=== PATIENT | male | born 1980 | race Caucasian/White ===

== ENCOUNTER 2016-06-20 08:33 | Emergency (ER) | payer OTHER ==
[~2016-06-20] VITALS: Ht 172.7 cm; Wt 100.0 kg
[~2016-06-20 08:33] MED LIST: CLINDAMYCIN HC150 MG PO; CLINDAMYCIN HC300 MG PO; CYMBALTA; DILAUDID 2MG TAB2 MG PO; FLOMAX 0.40.4 MG/CAP PO; LORTAB 5/500 501 TAB PO; MACROBID 1100 MG/CAP PO; NO HOME MEDICATIONS; NORCO 325 MG-51 TAB PO; PENICILLIN V500 MG PO; PERCOCET 325 MG1 TA2 PO; PERCOCET 325 MG1 TAB PO; PERCOCET 5/321 UDTAB PO; PREDNISONE20 MG PO; PYRIDIUM 100MG100 MG PO; SENOKOT8.6 MG PO; TUSS PO; ULTRAM 50MG TAB50 MG PO; ZITHROMAX Z PA250 MG PO; ZOFRAN 4MG T4 MG/TAB PO; ZOFRAN8 MG PO
[2016-06-20 08:35] VITALS: BP 110/56; PULSE 85; TEMP 98
[2016-06-20] MEDS ORDERED: CLEOCIN HC150 MG/CAP PO (09:02)
[2016-06-20] MEDS ORDERED: NORCO 325 MG-51 TAB PO (09:02)
== END 2016-06-20 09:14 | disposition home or self-care (01) ==
LOC: COL.ER 08:33
DX: G89.18 Other acute postprocedural pain (principal); K08.89 Other specified disorders of teeth and supporting structures; K08.409 Partial loss of teeth, unspecified cause, unspecified class; F17.210 Nicotine dependence, cigarettes, uncomplicated

== ENCOUNTER 2017-11-26 12:40 | Emergency (ER) | payer SELFPAY ==
[~2017-11-26] VITALS: Ht 172.7 cm; Wt 100.0 kg
[~2017-11-26 12:40] MED LIST changes: +CLEOCIN HC150 MG/CAP PO
[2017-11-26 12:42] VITALS: TEMP 98.5
[2017-11-26 13:31] LABS: BASO % 0.3 % (0.0-2.0); EOS # 0.1 (0.0-0.7); EOS % 1.6 % (0-4.0); GRAN # 4.4 (1.4-6.5); GRAN % 50.7 % (42.2-75.2); HEMATOCRIT 45.1 % (42.0-52.0); HEMOGLOBIN 15.7 g/dl (13.5-18.0); LYMPH # 3.5 (1.2-3.4); LYMPH % 39.7 % (20.0-51.0); MEAN CELL VOLUME 90 fl (80.0-100.0); MEAN CORPUSCULAR HEMOGLOBIN 32 pg (27.0-31.0); MEAN CORPUSCULAR HGB CONC 35 g/dl (33.0-37.0); MEAN PLATELET VOLUME 10.5 fl (7.4-10.4); MONO # 0.6 (0.1-0.6); MONO % 7.2 % (1.7-9.3); PLATELET COUNT 256 K/mm3 (130-400); RED BLOOD COUNT 4.99 M/mm3 (4.20-5.60); REDCELL DISTRIBUTION WIDTH-CV 12.7 % (11.5-14.5)
[2017-11-26 13:45] LABS: ALBUMIN 4.5 gm/dL (3.5-5.0); BILIRUBIN,TOTAL 0.6 mg/dL (0.0-1.0); CALCIUM 9.5 mg/dL (8.4-10.2); CREATININE, serum 0.86 mg/dL (0.66-1.25); POTASSIUM 3.8 mmol/L (3.4-5.0); TOTAL PROTEIN 7.6 gm/dL (6.4-8.2)
[2017-11-26 14:29] VITALS: BP 133/78; PULSE 71
== END 2017-11-26 14:31 | disposition home or self-care (01) ==
LOC: COL.ER 12:40
PROVIDERS: Physician Assistant
DX: R22.43 Localized swelling, mass and lump, lower limb, bilateral (principal); Z87.442 Personal history of urinary calculi; Z98.890 Other specified postprocedural states